=== PATIENT | female | born 1970 | race American Indian/Alaskan Native ===

== ENCOUNTER 2017-10-19 10:30 | Outpatient (CLI) | payer BC ==
--- NOTE | 2017-10-19 12:42 | Magnetic Resonance Report ---
MRI LUMBAR SPINE WITHOUT CONTRAST HISTORY: Lumbar radiculopathy. TECHNIQUE: axial T1, T2. sagittal T1,T2, STIR. COMPARISON: None. FINDINGS: The conus terminates at L1. No signal abnormality or mass. The cauda equina is within normal limits. No central canal stenosis. Normal height and alignment of the lumbar vertebra. The facet joints are in appropriate relationship. Normal bone marrow signal. No acute fracture or suspicious bone lesion. There is mild disc desiccation and narrowing at L5-S1. The remaining discs are within normal limits. No significant facet arthropathy. L1-2: Normal. L2-3: Normal. L3-4: Normal. L4-5: Normal. L5-S1: Mild to moderate disc space narrowing and endplate spurring is identified. There is a focal broad-based central disc protrusion which lateralizes to the left side. The protrusion abuts the left S1 nerve root in the spinal canal but does not displace it. Left neural foraminal narrowing is estimated at 25%. IMPRESSION: Early degenerative disc disease at L5-S1 with a mild to moderate central disc bulge as outlined above. No central canal stenosis or high-grade neural foraminal narrowing.
--- NOTE | 2017-10-20 11:57 | Mammography Report ---
Screening mammogram: Routine views demonstrate a heterogeneously dense and symmetrically distributed fibroglandular pattern. A small circumscribed nodule is identified in the upper outer left breast. The findings are not otherwise remarkable. CAD used. Impression: Left asymmetry. Recommendation: Prior exams are being requested for comparison. Recommendation will be made at that time. BI-RADS CATEGORY: 0 = Needs additional imaging evaluation ACR BI-RADS MAMMOGRAPHIC CODES: 0 = Needs additional imaging evaluation; 1 = Negative; 2 = Benign; 3 = Probably benign; 4 = Suspicious; 5 = Malignant; 6 = Known biopsy-proven malignancy COMMENT: 1. Dense breast tissue, i.e., adenosis, fibrocystic changes, etc., may obscure an underlying neoplasm. 2. Approximately 10% of cancers are not detected with mammography. 3. A negative mammography report should not delay biopsy if a clinically suspicious mass is present.
== END 2017-10-19 10:31 | disposition home or self-care (01) ==
LOC: MRI 10:30
PROVIDERS: ATTEND Family Medicine
DX: Z12.31 Encounter for screening mammogram for malignant neoplasm of breast (principal); M51.37 Other intervertebral disc degeneration, lumbosacral region; M54.16 Radiculopathy, lumbar region
CPT/HCPCS: 72148; 77067